=== PATIENT | female | born 1935 | race African-American/Black ===

== ENCOUNTER 2016-07-23 10:43 | Emergency (ER) | payer OTHER ==
[~2016-07-23] VITALS: Ht 157.5 cm; Wt 68.9 kg
[~2016-07-23 10:43] MED LIST: BYSTOLIC 5MG5 MG PO; BYSTOLIC10 MG PO; CALCIUM + D 6001 TAB PO; DILAUDID2 MG PO; IBUPROFEN600 M1 PO; LEVSIN-SL0.125 MG SL; MASON NATURAL1200 MG PO; MECLIZINE HCL25 M1 PO; MELOXICAM7.5 MG PO; MOBIC7.5 MG PO; MULTIVITAMIN1 TAB PO; NAPROXEN500 MG PO; NORVASC 10MG10 MG PO; OXYCODONE5 MG PO; PERCOCET 325 MG1 TA2 PO; PRILOSEC 20MG C20 MG PO; VALIUM2 MG PO
--- NOTE | 2016-07-23 11:10 | ED AMS/SEIZURE/WEAK/DIZZY ---
History of Present Illness General Chief Complaint: Dizziness Stated Complaint: DIZZINESS Source: patient, old records Exam Limitations: no limitations Vital Signs & Intake/Output Vital Signs & Intake/Output Vital Signs Date Time Temp Pulse Resp B/P Pulse O2 O2 Flow FiO2 Ox Delivery Rate 07/23 1239 97.6 62 17 138/64 99 Room Air 07/23 1116 Room Air 07/23 1100 97.0 59 18 143/75 98 Room Air Allergies Coded Allergies: NO KNOWN ALLERGIES (11/23/15) Reconcile Medications Amlodipine (Norvasc 10MG) 10 MG TAB 10 MG PO DAILY BP Calcium/Vitamin D (Calcium + D) (Unknown Strength) TAB 1 TAB PO DAILY SUPPLEMENT (Reported) Multivitamin (Multiple Vitamins) 1 EACH TABLET 1 TAB PO DAILY SUPPLEMENT ( Reported) Nebivolol Hydrochloride (Bystolic) 10 MG TAB 1 TAB PO DAILY blood pressure ( Reported) OMEGA-3 FATTY ACIDS/FISH OIL (Fish Oil 1,200 MG Softgel) (Unknown Strength) CAPSULE 1 TAB PO DAILY SUPPLEMENT (Reported) Triage Note: 80 Y/O FEMALE C/O DIZZINESS SINCE MIDNIGHT LAST NIGHT; STATES DIZZINESS HAS IMPROVED TODAY BUT SHE GOT SCARED. DENIES PAIN. DENIES DIAPHORESIS. DENIES N/V/D. REPORTS EATING WELL. EKG COMPLETED: NORMAL SINUS Triage Nurses Notes Reviewed? yes HPI: Patient is a 80-year-old female presents complaining of episodes of dizziness and lightheadedness. Patient reports that at midnight she was lying down in bed , got out of bed to go to the bathroom and she had an onset of head spinning sensation. The episode lasted for a couple of minutes and then resolved. Patient had a similar episode when she awoke this morning she had an episode that also lasted for a couple of minutes and resolved. Symptoms are currently 0 out of 10. Patient denies numbness, weakness, headache, palpitations, chest pain, syncope, nausea, vomiting. (MEGHNA SERVIN) Past History Travel History Traveled to [place] past 21 day No Medical History Any Pertinent Medical History? 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 No (MEGHNA SERVIN) Review of Systems Review of Systems Constitutional: Denies: chills, fever. EENTM: Reports: blurred vision (x months, seeing her optho for). Respiratory: Denies: cough, short of breath. Cardiovascular: Denies: chest pain, palpitations, syncope. GI: Denies: abdominal pain, nausea, vomiting. Genitourinary: Reports: no symptoms. Musculoskeletal: Denies: back pain, neck pain. Skin: Reports: no symptoms. Neurological/Psychological: Denies: headache, numbness, unable to move lower ext, unable to move upper ext, weakness. Hematologic/Endocrine: Denies: bruising, bleeding. Immunologic/Allergic: Denies: splenectomy. (MEGHNA SERVIN) Physical Exam Physical Exam General Appearance: well developed/nourished, alert, awake Head: atraumatic, normal appearance Eyes: Bilateral: normal appearance, PERRL, EOMI. 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 Yes ASA ordered for poss ACS? No-ACS ruled out CVA/TIA Diagnosis: No Severe Sepsis Present: No Septic Shock Present: No (MEGHNA SERVIN) Progress Differential Diagnosis: arrythmia, anemia, benign positional vertigo, CVA/stroke , electrolyte imbalance, GI bleed, hypoxia, intracranial Hem., intracranial mass /tumor, Meniere's disease, pneumonia, sepsis, subarachnoid Hem., UTI/pyelo, vertebrobasilar insuff Plan of Care: Orders Procedure Date/time Status MISTAKE 07/23 1147 Active Telemetry/Procedure Tech 07/23 1147 Active TROPONIN LEVEL 07/23 1147 Complete COMPREHENSIVE METABOLIC PANEL 07/23 1147 Complete CBC WITHOUT DIFFERENTIAL 07/23 1147 Complete EKG 07/23 1044 Active Laboratory Tests 07/23/16 1235: Anion Gap 9, Estimated GFR > 60, BUN/Creatinine Ratio 20.0, Glucose 92, Calcium 9.4, Total Bilirubin 0.5, AST 23, ALT 25, Alkaline Phosphatase 96, Troponin I < 0.01, Total Protein 7.3, Albumin 3.9, Globulin 3.4, Albumin/Globulin Ratio 1.1 07/23/16 1155: CBC w Diff NO MAN DIFF REQ, RBC 4.47, MCV 86.7, MCH 29.0, RDW 14.4, MPV 8.9, Gran % 68.6, Lymphocytes % 21.3, Monocytes % 7.0, Eosinophils % 2.8, Basophils % 0.3, Absolute Granulocytes 2.9, Absolute Lymphocytes 0.9 L, Absolute Monocytes 0.3, Absolute Eosinophils 0.1, Absolute Basophils 0, PUBS MCHC 33.4 1150: Discussed with Dr. Rodriguez. 1400: Patient resting comfortably. No symptoms present. Results discussed with patient. Patient appears stable for discharge and close outpatient follow-up. (MEGHNA SERVIN) Initial ED EKG: sinus bradycardia 56 bpm normal axis, normal intervals, nonspecific ST/T-wave changes in the lateral leads that are unchanged compared to previous EKG Prior EKG: unchanged Rhythm Strip: normal sinus rhythm (MEGHNA SERVIN) Departure Departure Time of Disposition: 1405 Disposition: HOME OR SELF CARE Condition: Stable Clinical Impression Primary Impression: Orthostatic lightheadedness Referrals: ARPAN MEYERS MD (PCP/Family) Additional Instructions: Increase your fluid intake. Follow-up with your primary doctor within 1 week for recheck and further evaluation. Try to change positions slowly. Return to the emergency department if headache, numbness, weakness, chest pain, palpitations, or worsening of symptoms. Departure Forms: Customer Survey General Discharge Information (MEGHNA SERVIN) PA/GRADUATE ENGINEER Co-Sign Statement Statement: ED Attending supervision documentation- [X] I saw and evaluated the patient. I have also reviewed all the pertinent lab results and diagnostic results. I agree with the findings and the plan of care as documented in the PA's/GRADUATE ENGINEER's documentation. [X] I have reviewed the ED Record and agree with the PA's/GRADUATE ENGINEER's documentation. [] Additions or exceptions (if any) to the PAs/GRADUATE ENGINEER's note and plan are summarized below: [] (ZAID MUSA,EDWARD)
[2016-07-23 12:00] LABS: ABSOLUTE BASOPHIL COUNT 0 /CUMM (0.0-0.2); ABSOLUTE EOSINOPHIL COUNT 0.1 /CUMM (0.0-0.7); ABSOLUTE GRANULOCYTE CT 2.9 /CUMM (1.4-6.5); ABSOLUTE LYMPH COUNT 0.9 /CUMM (1.2-3.4); ABSOLUTE MONOCYTE COUNT 0.3 /CUMM (0.10-0.60); BASOPHIL % 0.3 % (0.0-2.0); EOSINOPHIL % 2.8 % (0-5); GRANULOCYTE % 68.6 % (42.2-75.2); HEMATOCRIT 38.8 % (37-47); MEAN CORPUSCULAR HGB CONC 33.4 G/DL (33.0-37.0); MEAN CORPUSCULAR VOLUME 86.7 FL (81.0-99.0); MEAN PLATELET VOLUME 8.9 FL (7.4-10.4); PLATELET COUNT 177 /CUMM (130-400); RBC DISTRIBUTION WIDTH 14.4 % (11.5-14.5); RED BLOOD CELL CT 4.47 /CUMM (4.20-5.40); WHITE BLOOD CELL COUNT 4.2 /CUMM (4.8-10.8)
[2016-07-23 14:10] VITALS: BP 137/63
== END 2016-07-23 14:13 ==
LOC: ERH 10:43
PROVIDERS: Physician Assistant
DX: R42 Dizziness and giddiness (principal)
CPT/HCPCS: 93005; 93010

== ENCOUNTER 2017-10-10 15:12 | Inpatient (IN) | payer OTHER ==
[~2017-10-10] VITALS: Ht 157.5 cm; Wt 75.3 kg
[~2017-10-10 15:12] MED LIST changes: +AMLODIPINE BESYL5 M1 PO; +AZITHROMYCIN500 M3 PO; +CENTRUM SILVER1 EAC3 PO; +FISH OIL 1,0001 EAC2 PO; +FLOVENT HFA12 G1 INH; +GUAIFENESIN ER600 MG PO; +PREDNISONE10 M2 PO; +SPIRIVA18 MCG INH; +SYMBICORT 80-10.2 GM INH; +TRAMADOL HCL50 M1 PO; +ZITHROMAX250 M2 PO
[2017-10-10 16:14] LABS: ABSOLUTE BASOPHIL COUNT 0 /CUMM (0.0-0.2); ABSOLUTE EOSINOPHIL COUNT 0.2 /CUMM (0.0-0.7); ABSOLUTE GRANULOCYTE CT 1.8 /CUMM (1.4-6.5); ABSOLUTE LYMPH COUNT 1.9 /CUMM (1.2-3.4); ABSOLUTE MONOCYTE COUNT 0.4 /CUMM (0.10-0.60); BASOPHIL % 0.5 % (0.0-2.0); EOSINOPHIL % 4.2 % (0-5); GRANULOCYTE % 41.2 % (42.2-75.2); HEMATOCRIT 36.6 % (37-47); MEAN CORPUSCULAR HGB 28.6 PG (27.0-31.0); MEAN CORPUSCULAR HGB CONC 32.6 G/DL (33.0-37.0); MEAN CORPUSCULAR VOLUME 87.8 FL (81.0-99.0); MEAN PLATELET VOLUME 9.3 FL (7.4-10.4); PLATELET COUNT 190 /CUMM (130-400); RBC DISTRIBUTION WIDTH 14.8 % (11.5-14.5); RED BLOOD CELL CT 4.17 /CUMM (4.20-5.40); WHITE BLOOD CELL COUNT 4.3 /CUMM (4.8-10.8)
--- NOTE | 2017-10-10 16:37 | ED AMS/SEIZURE/WEAK/DIZZY ---
History of Present Illness General Chief Complaint: General Adult Stated Complaint: VERTIGO Source: patient Exam Limitations: no limitations Vital Signs & Intake/Output Vital Signs & Intake/Output Vital Signs Date Time Temp Pulse Resp B/P B/P Pulse O2 O2 Flow FiO2 Mean Ox Delivery Rate 10/11 2007 97.8 56 16 163/74 98 Room Air 10/10 1741 177/78 10/10 1536 99 Room Air 10/10 1519 96.0 57 18 177/77 100 Room Air Allergies Coded Allergies: NO KNOWN ALLERGIES (11/23/15) Reconcile Medications Amlodipine Besylate 5 MG TABLET 1 TAB PO DAILY BP (Reported) Azithromycin 500 MG TABLET 1 TAB PO DAILY SHORTNESS OF BREATH . Azithromycin (Zithromax) 250 MG TABLET 1 DP PO AD SHORTNESS OF BREATH 2 the first day followed by 1 for days 2-5 Budesonide/Formoterol Fumarate (Symbicort 80-4.5 Mcg Inhaler) 80 MCG-4.5 MCG/ ACTUATION HFA.AER.AD 2 PUF INH BID SHORTNESS OF BREATH . Fluticasone Propionate (Flovent Hfa) 110 MCG/ACTUATION AER.W.ADAP 2 PUF INH BID SHORTNESS FOR BREATH Guaifenesin (Guaifenesin ER) 600 MG TAB.ER.12H 600 MG PO Q12 MUCUS Multivit-Min/FA/Lycopen/Lutein (Centrum Silver Tablet) 0.4 MG-300 MCG-250 MCG TABLET 1 TAB PO DAILY SUPPLEMENT (Reported) [place]-3/Dha/Epa/Fish Oil (Fish Oil 1,000 MG Softgel) (Unknown Strength) CAPSULE (Unknown Dose) PO DAILY SUPPLEMENT (Reported) Prednisone 10 MG TABLET 1 TAB PO BID SHORTNESS OF BREATH DATE #OF TABS 05/03 4 05/04 4 05/05 3 05/06 3 05/07 2 05/08 2 05/09 1 05/10 1 Tiotropium [place] (Spiriva) 18 MCG CAP.W.DEV 1 CAP INH DAILY SHORTNESS OF BREATH . Triage Note: PT BIBA FROM [place] C/O VERTIGO. PT STATES ABOUT 1 HR PRIOR SHE WAS DRIVING AND ARRIVED HOME, WHEN SHE WENT TO GET OUT OF THE CAR SHE BECAME DIZZY. PT STATES "I DRANK JUICE TO GET MY SUGAR UP AND THEN I WAS STILL LIGHT HEADED" PT DENIES CP, SOB, AGGARWAL, ARM NUMBNESS/TINGLING. PT STATES COMPLIANT WITH BP MEDICATION DAILY. VSS. BP 177/77. PT DENIES DIABETES. PT DENIES BLURRY VISION. PT STATES HX OF VERTIGO IN THE PAST. Triage Nurses Notes Reviewed? yes Onset: Abrupt Duration: day(s): (1), changing over time, continues in ED Timing: single episode today Injury Environment: home Severity: moderate, severe Severity Numbers: 8 No Modifying Factors: none LMP (ages 10-50): post menopausal, unknown : No Patient currently breastfeeds: No HPI: 82-year-old female past medical history of hypertension, lipidemia, chronic back pain presents for evaluation of dizziness and lightheadedness. Patient states symptoms started today when she was getting out of a car. States she suddenly felt very lightheaded. Dizzy. There was no syncope no chest pain or shortness of breath. No nausea or vomiting. She states that since then the dizziness and intermittent. It is worse with movement of the head or change in positioning. Results at rest. She states if she stays still she has no symptoms. There is no head trauma no one-sided weakness to changes in vision no numbness or tingling. She is not taking any medicine for this. She never had this before. (Jt Biswas) Past History Travel History Traveled to [place] past 21 day No Medical History Any Pertinent Medical History? 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 No (Jt Biswas) Review of Systems Review of Systems Constitutional: Reports: no symptoms. EENTM: Reports: no symptoms. Respiratory: Reports: no symptoms. Cardiovascular: Reports: no symptoms. GI: Reports: no symptoms. Genitourinary: Reports: no symptoms. Musculoskeletal: Reports: no symptoms. Skin: Reports: no symptoms. Neurological/Psychological: Reports: see HPI (DIZZY). Hematologic/Endocrine: Reports: no symptoms. Immunologic/Allergic: Reports: no symptoms. All Other Systems: Reviewed and Negative (Jt Biswas) Physical Exam Physical Exam General Appearance: well developed/nourished, no apparent distress, alert, awake Head: atraumatic, normal appearance Eyes: Bilateral: normal appearance, PERRL, EOMI, other (NO NYSTAGMUS). 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 No CVA/TIA Diagnosis No Swallow Evaluation Pass Swallow eval date 10/10/17 Swallow eval time 1900 Sepsis Present: No Sepsis Focused Exam Completed? No (Jt Biswas) Progress Differential Diagnosis: arrythmia, anemia, benign positional vertigo, CVA/stroke , dehydration, electrolyte imbalance, intracranial Hem., intracranial mass/tumor , labrynthitis, migraine AGGARWAL, pneumonia, postural hypotension, presyncope, post- traumatic vertigo, subarachnoid Hem., UTI/pyelo Plan of Care: Orders Procedure Date/time Status Heart Healthy Diet 10/11 B Active Pathway - chart 10/10 2149 Active House Staff 10/10 2149 Active Code Status 10/10 2149 Active Add-on Test (ER Only) 10/10 2128 Active Patient Data 10/11 2115 Active ED Holding Orders 10/10 2048 Active Admit to inpatient 10/10 2048 Active Vital Signs 10/10 2048 Active Code Status 10/10 2048 Complete THYROID STIMULATING HORMONE 10/10 164 Complete VITAMIN B12 10/10 164 Complete MISTAKE 10/10 1536 Active FingerStick- Glucose 10/10 1532 Active Intake & Output 10/10 1518 Active EKG 10/10 151 Active URINALYSIS 10/10 151 Complete TROPONIN LEVEL 10/10 151 Complete MAGNESIUM 10/10 151 Complete COMPREHENSIVE METABOLIC PANEL 10/10 151 Complete CBC WITHOUT DIFFERENTIAL 10/11 1515 Complete VTE Mechanical Prophylaxis 10/10 UNK Active Current Medications Sig/Leonard Start time Last Medication Dose Stop Time Status Admin Sodium Chloride 1,000 ML BOLUS ONE 10/10 181 CAN (Normal Saline 0.9%) 10/10 2013 Lorazepam 0.5 MG ONCE ONE 10/10 173 CAN (Ativan) 10/10 173 Laboratory Tests 10/10/17 1649: Anion Gap 10, Estimated GFR > 60, BUN/Creatinine Ratio 17.8, Glucose 82, Calcium 9.8, Magnesium 1.9, Total Bilirubin 0.4, AST 23, ALT 22, Alkaline Phosphatase 80 , Troponin I < 0.01, Total Protein 7.7, Albumin 4.4, Globulin 3.3, Albumin/ Globulin Ratio 1.3, Vitamin B12 > 1000 H, TSH 1.340 10/10/17 1618: Urine Color YEL, Urine Clarity CLEAR, Urine pH 6.5, Ur Specific [place] 1.010, Urine Protein 30 H, Urine Ketones NEG, Urine Nitrite NEG, Urine Bilirubin NEG, Urine Urobilinogen 0.2, Ur Leukocyte Esterase SMALL H, Ur Microscopic SEDIMENT EXAMINED, Urine RBC RARE, Urine WBC 10-15 H, Ur Epithelial Cells MANY H, Urine Hemoglobin NEG, Urine Glucose NEG 10/10/17 1602: CBC w Diff NO MAN DIFF REQ, RBC 4.17 L, MCV 87.8, MCH 28.6, MCHC 32.6 L, RDW 14.8 H, MPV 9.3, Gran % 41.2 L, Lymphocytes % 44.3, Monocytes % 9.8 H, Eosinophils % 4.2, Basophils % 0.5, Absolute Granulocytes 1.8, Absolute Lymphocytes 1.9, Absolute Monocytes 0.4, Absolute Eosinophils 0.2, Absolute Basophils 0 Patient seen and evaluated. Dizziness with movement and positioning only results with rest. No chest pain or shortness of breath. She is neurologically intact. Vital signs are stable. We'll check basic blood work EKG CT scan of the brain chest x-ray. Patient medicated with IV fluids and meclizine. Patient is slightly orthostatic. She has a drop greater than 10 mmHg in her diastolic blood pressure when going from laying to sitting. She does report dizziness with movement. She was given a 500 mL fluid bolus. Blood work is unchanged from previous CT scan of the brain is negative. Patient still reported significant symptoms as well as meclizine. She was given 0.5 mg of Ativan. She'll be reassessed. Patient to need to report dizziness with movement. She was ambulated to the bathroom and required significant assistance. She does not feel comfortable walking on her own. Attempted Apley maneuver was unsuccessful in relieving patient's symptoms. Patient will be admitted to the hospital for further evaluation and treatment and to rule out cerebellar stroke. She has a gag reflex. She was given a dose of aspirin. Patient will require telemetry monitoring, physical therapy, serial labs, neurology, MRI of the brain and monitor the vital signs. Case discussed with Dr. Ennis he agrees. Diagnostic Imaging: Viewed by Me: Radiology Read, CT Scan. Discussed w/RAD: Radiology Read, CT Scan. Radiology Impression: PATIENT: LIZA HANDLEY PRESENT AGE: 82 PATIENT ACCOUNT NO: [id number] : 37 LOCATION: [facility] ORDERING PHYSICIAN: Jt RODRIGUEZ SERVICE DATE: 10/10/17 EXAM TYPE: CAT - CT HEAD WO IV CONTRAST EXAMINATION: CT HEAD WITHOUT CONTRAST CLINICAL INFORMATION: Dizziness. Lightheadedness. COMPARISON: None TECHNIQUE: Contiguous axial imaging was performed from the skull base to vertex without intravenous administration of contrast. DLP: 546.41 mGy-cm FINDINGS: There is no evidence of acute intracranial hemorrhage or territorial infarction. No abnormal mass effect or midline shift is seen. [place] to white matter differentiation is well preserved. No extra-axial fluid collections are identified. The ventricles are normal in size. Mild chronic white matter microangiopathic changes are noted. The osseous structures and soft tissues are normal. The mastoid air cells and visualized portions of the paranasal sinuses are well aerated. IMPRESSION: No acute intracranial hemorrhage or territorial infarction. DICTATED BY: Ming Alejandra MD DATE/TIME DICTATED:10/10/171720 QUALITY IMPROVEMENT ANALYST:MARY DATE/ TIME TRANSCRIBED:10/10/171720 CONFIDENTIAL, DO NOT COPY WITHOUT APPROPRIATE AUTHORIZATION. CXR Impression: PATIENT: LIZA HANDLEY PRESENT AGE: 82 PATIENT ACCOUNT NO: [id number] : 37 LOCATION: [facility] ORDERING PHYSICIAN: Jt RODRIGUEZ SERVICE DATE: 10/10/17 EXAM TYPE: RAD - XRY-PORTABLE CHEST XRAY EXAMINATION: XR PORTABLE CHEST CLINICAL INFORMATION: Lightheaded. Assess for congestive heart failure or pneumonia. COMPARISON: Chest x-ray 2016. TECHNIQUE: Portable frontal view of the chest was obtained. FINDINGS: The lung miranda are well expanded and appear clear bilaterally. The cardiac silhouette is normal. The aortic arch is unfolded and the descending artery slightly tortuous. There are no pleural effusions or pneumothorax. The central pulmonary vasculature is normal. Mild prominence of the right hilum appears stable. There are no acute osseous findings. Metallic densities projected over the humeral head are nonspecific and may be external to the patient or postoperative. There were not present on the prior study. IMPRESSION: 1. There are no acute cardiopulmonary findings. DICTATED BY: Lamont Farah MD DATE/TIME DICTATED:10/10/171650 QUALITY IMPROVEMENT ANALYST:MARY DATE/TIME TRANSCRIBED:1650 CONFIDENTIAL, DO NOT COPY WITHOUT APPROPRIATE AUTHORIZATION. < Electronically signed in Other Vendor System> SIGNED BY: Lamont Farah MD 1702 Initial ED EKG: normal sinus rhythm, BORDERLINE T WAVE ABN DIFFUSE (Jt Biswas) Departure Departure Disposition: STILL A PATIENT Condition: Stable Clinical Impression Primary Impression: Vertigo Referrals: Paul Peterson MD (PCP/Family) Departure Forms: Customer Survey General Discharge Information Admission Note Spoke With: Roselyn MUSA,Sukhdeep Gold Documentation of Exam: Documentation of any treatments & extenuating circumstances including Concerns Regarding Discharge (functional status, medication knowledge or non-compliance, living conditions, etc.) that warrant an admission rather than observation: [IV fluids, serial labs, MRI of the brain, neurology consult, IV Ativan, rule out cva, rule out central vertigo, pt eval , case management ] (Jt Biswas) PA/CORRESPONDENCE SCHOOL TEACHER Co-Sign Statement Statement: ED Attending supervision documentation- [X] I saw and evaluated the patient. I have also reviewed all the pertinent lab results and diagnostic results. I agree with the findings and the plan of care as documented in the PA's/CORRESPONDENCE SCHOOL TEACHER's documentation. [X] I have reviewed the ED Record and agree with the PA's/CORRESPONDENCE SCHOOL TEACHER's documentation. [] Additions or exceptions (if any) to the PAs/CORRESPONDENCE SCHOOL TEACHER's note and plan are summarized below: [Patient being admitted for intractable vertigo. Patient will need telemetry monitoring, neurology consultation, possible MRI] (Raymon MUSA,Ming Stevenson) (Raymon MUSA,Ming Lantigua.)
--- NOTE | 2017-10-10 17:02 | RADIOLOGY REPORT ---
EXAMINATION: XR PORTABLE CHEST CLINICAL INFORMATION: Lightheaded. Assess for congestive heart failure or pneumonia. COMPARISON: Chest x-ray 04/28/2017. TECHNIQUE: Portable frontal view of the chest was obtained. FINDINGS: The lung mirnada are well expanded and appear clear bilaterally. The cardiac silhouette is normal. The aortic arch is unfolded and the descending artery slightly tortuous. There are no pleural effusions or pneumothorax. The central pulmonary vasculature is normal. Mild prominence of the right hilum appears stable. There are no acute osseous findings. Metallic densities projected over the humeral head are nonspecific and may be external to the patient or postoperative. There were not present on the prior study. IMPRESSION: 1. There are no acute cardiopulmonary findings.
--- NOTE | 2017-10-10 17:27 | CT SCAN REPORT ---
EXAMINATION: CT HEAD WITHOUT CONTRAST CLINICAL INFORMATION: Dizziness. Lightheadedness. COMPARISON: None TECHNIQUE: Contiguous axial imaging was performed from the skull base to vertex without intravenous administration of contrast. DLP: 546.41 mGy-cm FINDINGS: There is no evidence of acute intracranial hemorrhage or territorial infarction. No abnormal mass effect or midline shift is seen. [place] to white matter differentiation is well preserved. No extra-axial fluid collections are identified. The ventricles are normal in size. Mild chronic white matter microangiopathic changes are noted. The osseous structures and soft tissues are normal. The mastoid air cells and visualized portions of the paranasal sinuses are well aerated. IMPRESSION: No acute intracranial hemorrhage or territorial infarction.
--- NOTE | 2017-10-10 21:25 | History & Physical ---
Moreno Murray MD 10/10/172123: General Information and HPI MD Statement: I have seen and personally examined LIZA HANDLEY and documented this H&P. The patient is a 82 year old F who presented with a patient stated chief complaint of dizziness. Source of Information: patient, old records Exam Limitations: no limitations History of Present Illness: 82 year old female with past medical history significnat for former smoking, hypertension, dyslipidemia, chronic back pain, spinal stenosis, L5 radiculopathy , and GERD presents with complaints of dizziness. The patient was in her usual state of health today, when after driving and completing her errands she developed a sudden feeling of vertigo and lightheadedness when pulling into the driveway. As she got out of the car and walked into her home, these symptoms persisted and she felt unsteady but did not fall. She thought it might be because of blood sugar or pressure and drank some orange juice and sat down. Her symptoms continued and she went to an urgent care clinic. Her systolic blodo pressure there was elevated >180mmHg and she was told to go the emergency department. At the time of evaluation for admission she was feeling better and ordering fried chicken over the telephone. She states her symptoms return when she sits upright and stands. She did report recent rhinorrhea and post nasal drip but denied any fevers, chills, headache, tinnitus, sore throat, sinus or dental pain, hearing problems, vision changes, chest pain, palpitations, nausea, vomiting, diaphoresis, syncope, weakness or focal neurological complaints. She said she experienced these same symptoms in 09/2015 when she was hospitalized for hypertensive urgency but has been well since then. In the emergency department, she had a noncontrast head CT, was given meclizine, aspirin 325mg, 500cc NS, ativan 0.5mg and admitted to telemetry for further management. Allergies/Medications Allergies: Coded Allergies: NO KNOWN ALLERGIES (11/23/15) Compliance With Home Meds: GOOD Past History Travel History Traveled to [place] past 21 day No Medical History Neurological: NONE EENT: NONE Cardiovascular: hypertension, hyperlipidemia Respiratory: NONE Gastrointestinal: GERD Hepatic: NONE Renal: NONE Musculoskeletal: chronic back pain Psychiatric: NONE Endocrine: NONE Blood Disorders: NONE Cancer(s): NONE SANDER MACHINE/Reproductive: NONE History of MRSA: No History of VRE: No History of CDIFF: No Surgical History Surgical History: hip replacement, Back surgery Past Family/Social History Family History Relations & Conditions if any SISTER FH: hypertension SISTER FH: breast cancer Psychosocial History Services at Home: None Primary Language: Spanish Functional Ability ADLs Independent: dressing, eating, toileting, bathing. Ambulation: independent IADLs Independent: shopping, housework, finances, food prep, telephone, transportation , medication admin. Review of Systems Review of Systems Constitutional: Denies: chills, diaphoresis, fever, malaise, weakness. EENTM: Reports: nasal congestion. Denies: blurred vision, double vision, epistaxis, nasal pain, throat pain. Cardiovascular: Denies: chest pain, orthopena, palpitations, peripheral edema, syncope. Respiratory: Denies: cough, short of breath, sputum production. GI: Denies: abdominal pain, diarrhea, nausea, vomiting. Genitourinary: Denies: dysuria, frequency. Musculoskeletal: Reports: no symptoms. Skin: Reports: no symptoms. Neurological/Psychological: Denies: headache, weakness. Hematologic/Endocrine: Reports: no symptoms. Immunologic/Allergic: Reports: no symptoms. All Other Systems: Reviewed and Negative Exam & Diagnostic Data Last 24 Hrs of Vital Signs/I&O Vital Signs Date Time Temp Pulse Resp B/P B/P Pulse O2 O2 Flow FiO2 Mean Ox Delivery Rate 10/11 2007 97.8 56 16 163/74 98 Room Air 10/10 1741 177/78 10/10 1536 99 Room Air 10/10 1519 96.0 57 18 177/77 100 Room Air Intake & Output 10/11 0800 10/11 0000 10/10 1600 Intake Total Output Total Balance Patient 75.296 kg Weight Weight Reported by Patient Measurement Method Physical Exam General Appearance Alert, Oriented X3, Cooperative, No Acute Distress Skin No Rashes, No Breakdown Neck Supple, No JVD Cardiovascular Regular Rate, Normal S1, Normal S2, No Murmurs Lungs Clear to Auscultation, Normal Air Movement Abdomen Normal Bowel Sounds, Soft, No Tenderness, No Masses Neurological Normal Speech, Strength at 5/5 X4 Ext, Sensation Intact, Cranial Nerves 3-12 NL, graeme hallpike negative Extremities No Clubbing, No Cyanosis, No Edema, Normal Pulses Last 24 Hrs of Labs/Huber: Laboratory Tests 10/10/17 1649: Anion Gap 10, Estimated GFR > 60, BUN/Creatinine Ratio 17.8, Glucose 82, Calcium 9.8, Magnesium 1.9, Total Bilirubin 0.4, AST 23, ALT 22, Alkaline Phosphatase 80 , Troponin I < 0.01, Total Protein 7.7, Albumin 4.4, Globulin 3.3, Albumin/ Globulin Ratio 1.3, Vitamin B12 > 1000 H, TSH 1.340 10/10/17 1618: Urine Color YEL, Urine Clarity CLEAR, Urine pH 6.5, Ur Specific [place] 1.010, Urine Protein 30 H, Urine Ketones NEG, Urine Nitrite NEG, Urine Bilirubin NEG, Urine Urobilinogen 0.2, Ur Leukocyte Esterase SMALL H, Ur Microscopic SEDIMENT EXAMINED, Urine RBC RARE, Urine WBC 10-15 H, Ur Epithelial Cells MANY H, Urine Hemoglobin NEG, Urine Glucose NEG 10/10/17 1602: CBC w Diff NO MAN DIFF REQ, RBC 4.17 L, MCV 87.8, MCH 28.6, MCHC 32.6 L, RDW 14.8 H, MPV 9.3, Gran % 41.2 L, Lymphocytes % 44.3, Monocytes % 9.8 H, Eosinophils % 4.2, Basophils % 0.5, Absolute Granulocytes 1.8, Absolute Lymphocytes 1.9, Absolute Monocytes 0.4, Absolute Eosinophils 0.2, Absolute Basophils 0 Diagnostic Data EKG Results sinus rhythm HR 54, no ischemic ST segment changes CXR Results The lung miranda are well expanded and appear clear bilaterally. The cardiac silhouette is normal. The aortic arch is unfolded and the descending artery slightly tortuous. There are no pleural effusions or pneumothorax. The central pulmonary vasculature is normal. Mild prominence of the right hilum appears stable. There are no acute osseous findings. Metallic densities projected over the humeral head are nonspecific and may be external to the patient or postoperative. There were not present on the prior study. Other Results Head CT There is no evidence of acute intracranial hemorrhage or territorial infarction. No abnormal mass effect or midline shift is seen. [place] to white matter differentiation is well preserved. No extra-axial fluid collections are identified. The ventricles are normal in size. Mild chronic white matter microangiopathic changes are noted. The osseous structures and soft tissues are normal. The mastoid air cells and visualized portions of the paranasal sinuses are well aerated. Assessment/Plan Assessment: 82 year old female with past medical history significnat for former smoking, hypertension, dyslipidemia, chronic back pain, spinal stenosis, L5 radiculopathy , and GERD presents with complaints of dizziness. Vertigo: Received meclizine in the ED Graeme Hallpike negative Check orthostatic vital signs Admit to storyboard artist for arrhythmia NCHCT negative for hemorrhage or territorial infarction Consider MRI Brain, CTA head/neck in the morning or carotid and VERTEBRAL dopplers Check echocardiogram TSH wnl, no metabolic/electrolyte abnormalities Consider cardiology consult in the morning Check another troponin and EKG to evaluate for myocardial ischemia No evidence of infection Can continue meclizine prn History of smoking and bronchitis: Outpatient pulmonary function tests Continue spiriva, symbicort, and proair prn Hypertension: Continue norvasc 5mg po daily Suspect sodium restriction would improve patient's blood pressure significantly Heart healthy diet DVT ppx-heparin 5000 units subcutaneous q8h Full code As Ranked By This Provider Problem List: 1. Chronic back pain 2. Spinal stenosis 3. Vertigo Core Measures/Misc (03/20) Acute Coronary Syndrome ACS Diagnosis: No Congestive Heart Failure Congestive Heart Failure Diagnosis No Cerebrovascular Accident CVA/TIA Diagnosis: No VTE (View Protocol) VTE Risk Factors Age>40 No Mechanical VTE Prophylaxis d/t N/A MechProphylax Ordered No VTE Pharm Prophylaxis d/t NA PharmProphylax ordered Sepsis (View protocol) Sepsis Present: No Eliecer MUSA,[facility] 10/11/17 0024: Resident Review Statement Resident Statement: examined this patient, discussed with restaurant management internship, agreed with restaurant management internship Other Findings: HPI: 82 year old female with PMHx HTN, HLD, GERD and chronic back pain s/p multiple spinal surgery(2011), present with CC of dizziness without syncope. She was admitted in 2016 for the same complaint. Patient states that her symptoms started earlier today when she was getting out of the car, she was dizzy for a while and then became intermittent for which she decided to visit the ED. Dizziness worsen with position changing or head movements. Dizziness resolved she and sit still. She denies nausea, vomiting, hearing change, vision change, weakness, numbness or any focal neurological deficit. She has no new medication changes. Vitals on admission: Temp 96, BP 177/77, HR 57, Ox 100 on RA. Physical exam: A & Ox3 not in acute distress. CVS: 2/6 systolic murmur best here over the heart base without rubs or gallop. Respiratory CTA bilaterally. Neurology cranial nerves grossly normal, motor and sensation are intact all over. No nystagmus however she received meclizine. Normal finger to nose exam. Labs and imaging: WBCs 4.3, H&H 11.9 & 36.6. Sodium, potassium, calcium, magnesium, troponin, renal function, liver function, thyroid function are within normal limits. X-ray no acute finding. CT head has no significant finding. Assessment: 82-year-old female presented with dizziness. Neurology: Exam were normal. All labs were WNL. She is not anemic. Mallie-Hallpike test were negative however patient received meclizine in the ED. We will monitor on telemetry to r/u arrhythmia. Given her history of admission for dizziness 2 years ago she may benefit from CTA head to check her vertebral arteries. Problem list * HTN * HLD * GERD * Dizziness * Chronic back pain * Chronic rhinitis with recent bronchitis Plan * Monitoring telemetry to rule out arrhythmias * Orthostatic check * Continue amlodipine 5 mg for hypertension * Continue home inhalers includes Spiriva and Symbicort confirm in am * Glucose fingerstick * Heart healthy diet * DVT PPX with subcutaneous heparin * Full code Roselyn MUSA,[facility] 10/11/171923: General Information and HPI Allergies/Medications Home Med list Amlodipine Besylate (Norvasc) 5 MG TABLET 7.5 MG PO DAILY HIGH BLOOD PRESSURE Fluticasone Propionate (Flovent Hfa) 110 MCG/ACTUATION AER.W.ADAP 2 PUF INH BID SHORTNESS FOR BREATH Meclizine HCl 25 MG TABLET 1 TAB PO TIDPRN PRN DIZZINESS [place]-3/Dha/Epa/Fish Oil (Fish Oil 1,000 MG Softgel) (Unknown Strength) CAPSULE (Unknown Dose) PO DAILY SUPPLEMENT (Reported) Tiotropium [place] (Spiriva) 18 MCG CAP.W.DEV 1 CAP INH DAILY SHORTNESS OF BREATH . Attending MD Review Statement Attending Statement Attending MD Statement: examined this patient, discuss w/resident/PA/PROTOTYPE MODEL MAKER, agreed w/resident/PA/PROTOTYPE MODEL MAKER, discussed with family, reviewed EMR data (avail), discussed with nursing, discussed with case mgmt, reviewed images, amended to note Attending Assessment/Plan: Seen and examined independently Issues SIg HTN SIg VErtigo wiht gait imbalance Dehydration sig lba with radiculopathy COPD with smoking Plan as above
--- NOTE | 2017-10-11 07:12 | PN- Housestaff ---
Daria MUSA,[facility] 10/11/1712: Subjective Follow-up For: vertigo Tele-Events Since Last Visit: not recorded in ED, per nurse NSR overnight Subjective: Patient was seen and examined at bedside. She is resting comfortably. She had no acute events overnight. She was able to ambulate to the restroom using a walker although she felt unsteady on her feet she did not have any episodes of dizziness, her last episode of dizziness was sometime yesterday evening. She overall feels well and offers no complaints. Review of Systems Constitutional: Denies: chills, fever. EENTM: Reports: no symptoms. Cardiovascular: Reports: no symptoms. Respiratory: Reports: no symptoms. Gastrointestinal: Reports: no symptoms. Genitourinary: Reports: no symptoms. Musculoskeletal: Reports: no symptoms. Skin: Reports: no symptoms. Neurological/Psychological: Reports: no symptoms. Objective Last 24 Hrs of Vital Signs/I&O Vital Signs Date Time Temp Pulse Resp B/P B/P Pulse O2 O2 Flow FiO2 Mean Ox Delivery Rate 10/11 2007 97.8 56 16 163/74 98 Room Air 10/10 1741 177/78 10/10 1536 99 Room Air 10/10 1519 96.0 57 18 177/77 100 Room Air Intake & Output 10/11 0800 10/11 0000 10/10 1600 Intake Total Output Total Balance Patient 166 lb Weight Weight Reported by Patient Measurement Method Physical Exam General Appearance: Alert, Oriented X3, Cooperative, No Acute Distress Skin Temp/Moisture Exam: Warm/Dry Cardiovascular: Regular Rate, Normal S1, Normal S2 Lungs: Clear to Auscultation, Normal Air Movement Abdomen: Normal Bowel Sounds, Soft, No Tenderness Neurological: Normal Speech, Strength at 5/5 X4 Ext, Normal Tone, Sensation Intact, Cranial Nerves 3-12 NL Extremities: No Clubbing, No Cyanosis, No Edema Current Medications: Current Medications Sig/Leonard Start time Last Medication Dose Route Stop Time Status Admin Amlodipine Besylate 5 MG DAILY 10/11 1000 AC PO Aspirin 0 .STK-MED ONE 10/10 2037 DC PO Aspirin 325 MG ONCE ONE 10/10 2029 DC 10/10 PO 10/10 Budesonide/ 2 PUF BID 10/11 1000 AC Formoterol Fumarate INH Guaifenesin 600 MG Q12 10/11 1000 AC PO Lorazepam 0 .STK-MED ONE 10/10 1734 DC PO Lorazepam 0.5 MG ONCE ONE 10/10 1730 CAN IV 10/10 1731 Lorazepam 0.5 MG ONE ONE 10/10 1730 DC 10/10 PO 10/10 1731 1729 Meclizine HCl 0 .STK-MED ONE 10/10 1555 DC PO Meclizine HCl 25 MG ONCE ONE 10/10 1545 DC 10/10 PO 10/10 1546 1554 Sodium Chloride 500 ML BOLUS ONE 10/10 1830 DC 10/10 IV 10/10 1929 1826 Sodium Chloride 1,000 ML BOLUS ONE 10/10 1815 CAN IV 10/10 2013 Tiotropium [place] 1 PUF DAILY 10/11 1000 AC INH Last 24 Hrs of Lab/Huber Results Last 24 Hrs of Labs/Mics: Laboratory Tests 10/10/17 1649: Anion Gap 10, Estimated GFR > 60, BUN/Creatinine Ratio 17.8, Glucose 82, Calcium 9.8, Magnesium 1.9, Total Bilirubin 0.4, AST 23, ALT 22, Alkaline Phosphatase 80 , Troponin I < 0.01, Total Protein 7.7, Albumin 4.4, Globulin 3.3, Albumin/ Globulin Ratio 1.3, Vitamin B12 > 1000 H, TSH 1.340 10/10/17 1618: Urine Color YEL, Urine Clarity CLEAR, Urine pH 6.5, Ur Specific [place] 1.010, Urine Protein 30 H, Urine Ketones NEG, Urine Nitrite NEG, Urine Bilirubin NEG, Urine Urobilinogen 0.2, Ur Leukocyte Esterase SMALL H, Ur Microscopic SEDIMENT EXAMINED, Urine RBC RARE, Urine WBC 10-15 H, Ur Epithelial Cells MANY H, Urine Hemoglobin NEG, Urine Glucose NEG 10/10/17 1602: CBC w Diff NO MAN DIFF REQ, RBC 4.17 L, MCV 87.8, MCH 28.6, MCHC 32.6 L, RDW 14.8 H, MPV 9.3, Gran % 41.2 L, Lymphocytes % 44.3, Monocytes % 9.8 H, Eosinophils % 4.2, Basophils % 0.5, Absolute Granulocytes 1.8, Absolute Lymphocytes 1.9, Absolute Monocytes 0.4, Absolute Eosinophils 0.2, Absolute Basophils 0 Assessment/Plan Assessment: Patient is an 82-year-old female with a PMH significant for HTN, HLD, chronic back pain, spinal stenosis, L5 radiculopathy, GERD who presented to the [facility] ED complaining of dizziness #Vertigo Patient reports no recurrence of her vertigo since receiving meclizine last night, orthostatic negative, Karli-Hallpike maneuver negative, patient had a similar episode in the past which resolved in approximately 3 days and has not recurred since, until now -Continue to monitor on telemetry for arrhythmia -We'll consider further imaging recurrence of vertigo #Chronic medical problems including history of smoking, HTN -Continue home medications Diet: Heart healthy diet DVT prophylaxis: Subcutaneous heparin, Alps CODE STATUS: Problem List: 1. Vertigo Pain Ratin Pain Location: none Pain Goal: Remain pain free Pain Plan: pain pathway Tomorrow's Labs & Rationales: chery Dempsey MD,[facility] 10/11/171925: Attending MD Review Statement Attending Statement Attending MD Statement: examined this patient, discuss w/resident/PA/SECURITY TRAINER, agreed w/resident/PA/SECURITY TRAINER, discussed with family, reviewed EMR data (avail), discussed with nursing, discussed with case mgmt, reviewed images, amended to note Attending Assessment/Plan: Seen and examined in the ED with the storage facility housekeeper Agree with above Pt with sig HTN with vertigo with gait imbalance now with Gait imbalance BIlateral bronchiectasis HTN with gait imbalance Dehydration PRevious smoking PLAN stable Increase bp meds if ok with ambulation to be dcd with meclazine and will follow closely as out pt
[2017-10-11 07:18] VITALS: BP 127/59
[2017-10-11 08:55] VITALS: BP 122/52
[2017-10-11] MEDS ORDERED: NORVASC10 M1 PO (14:17)
--- NOTE | 2017-10-11 14:19 | Patient Discharge Instructions ---
Discharge Instructions General Discharge Information You were seen/treated for: Dizziness Special Instructions: -Please follow-up with your primary care physician within 1 week after discharge -Please follow-up with Dr. Dempsey within 1 week after discharge -Please take meclizine when you feel dizzy NEEDED. You should not take it while you are driving or working with heavy machines. Acute Coronary Syndrome Inclusion Criteria At DC or during hospital stay patient has or had the following: Discharge Core Measures Meds if any: Prescribed or Continued at Discharge Meds if any: NOT Prescribed or Continued at Discharge Congestive Heart Failure Inclusion Criteria At DC or during hospital stay patient has or had the following: Discharge Core Measures Meds if any: Prescribed or Continued at Discharge Meds if any: NOT Prescribed or Continued at Discharge Cerebrovascular accident Inclusion Criteria At DC or during hospital stay patient has or had the following: CVA/TIA Diagnosis No Discharge Core Measures Meds if any: Prescribed or Continued at Discharge Meds if any: NOT Prescribed or Continued at Discharge Venous thromboembolism Discharge Core Measures - Per Current guidelines, there needs to be overlap - treatment for the first 5 days of Warfarin therapy. - If discharged on Warfarin prior to 5 days of - overlap therapy, the patient will need to be - assessed for post discharge needs including - *Post discharge parental anticoagulation - *Warfarin and/or parental anticoagulation education - *Follow up date to check INR post discharge Meds if any: Prescribed or Continued at Discharge Note: Overlap Therapy is Warfarin and Anticoagulant Meds if any: NOT Prescribed or Continued at Discharge
[2017-10-11] MEDS ORDERED: NORVASC5 M1 PO (14:50)
[2017-10-11] MEDS ORDERED: MECLIZINE HCL25 MG PO (14:50)
[2017-10-11 16:18] VITALS: BP 152/67
--- NOTE | 2017-10-12 05:38 | Discharge Summary ---
Hospital Course Allergies: Coded Allergies: NO KNOWN ALLERGIES (11/23/15) Discharge Instructions Medications at Discharge Discharge Medications: Stop taking the following medications: Amlodipine Besylate (Amlodipine Besylate) 5 MG TABLET ORAL DAILY Qty = 30 Multivit-Min/FA/Lycopen/Lutein (Centrum Silver Tablet) 0.4 MG-300 MCG-250 MCG TABLET ORAL DAILY Guaifenesin (Guaifenesin ER) 600 MG TAB.ER.12H ORAL EVERY 12 HOURS Qty = 20 Azithromycin (Azithromycin) 500 MG TABLET ORAL DAILY Qty = 5 Budesonide/Formoterol Fumarate (Symbicort 80-4.5 Mcg Inhaler) 80 MCG-4.5 MCG/ ACTUATION HFA.AER.AD Inhale through mouth TWICE DAILY Qty = 10.2 Prednisone (Prednisone) 10 MG TABLET ORAL TWICE DAILY Qty = 20 Azithromycin (Zithromax) 250 MG TABLET ORAL As Directed Qty = 6 Continue taking these medications: [place]-3/Dha/Epa/Fish Oil (Fish Oil 1,000 MG Softgel) (Unknown Strength) CAPSULE Unknown Dose ORAL DAILY Comments: NOT GIVEN Fluticasone Propionate (Flovent Hfa) 110 MCG/ACTUATION AER.W.ADAP 2 Puff Inhale through mouth TWICE DAILY Qty = 2 Comments: Last Taken:05/02/17 Time:10AM Tiotropium [place] (Spiriva) 18 MCG CAP.W.DEV 1 Capsule Inhale through mouth DAILY Qty = 30 Instructions: . Comments: NOT GIVEN Start taking the following new medications: Amlodipine Besylate (Norvasc) 5 MG TABLET 7.5 Milligram ORAL DAILY Qty = 60 No Refills Meclizine HCl (Meclizine HCl) 25 MG TABLET 1 Tablet ORAL THREE TIMES A DAY NEEDED as needed for DIZZINESS Qty = 30 No Refills
== END 2017-10-11 21:42 | DRG 149 ==
LOC: ERH 15:12 → ERHI 20:49
PROVIDERS: Physician Assistant Medical
DX: R42 Dizziness and giddiness (principal); E86.0 Dehydration; J44.9 Chronic obstructive pulmonary disease, unspecified; E78.5 Hyperlipidemia, unspecified; I10 Essential (primary) hypertension; Z87.891 Personal history of nicotine dependence; K21.9 Gastro-esophageal reflux disease without esophagitis; M48.00 Spinal stenosis, site unspecified; M54.16 Radiculopathy, lumbar region; Z96.649 Presence of unspecified artificial hip joint; M54.9 Dorsalgia, unspecified; J31.0 Chronic rhinitis; Z79.51 Long term (current) use of inhaled steroids; F17.210 Nicotine dependence, cigarettes, uncomplicated; R26.9 Unspecified abnormalities of gait and mobility
CPT/HCPCS: ERO; 71045; 81001; 93005; 93010; J1644; J3490; J7040